=== PATIENT | female | born 1995 | race Caucasian/White ===

== ENCOUNTER → 2018-08-12 | Outpatient (CLI) | payer OTHER | LOC: M RAD 14:10 | DX: Z36.89 Encounter for other specified antenatal screening (principal); Z3A.20 20 weeks gestation of pregnancy | CPT/HCPCS: 76811 ==

== ENCOUNTER 2019-02-10 13:28 | Inpatient (IN) | payer OTHER ==
[~2019-02-10] VITALS: Ht 152.4 cm; Wt 57.4 kg
[2019-02-10 14:26] LABS: HEMATOCRIT 40.7 % (36.0-47.0); HEMOGLOBIN 13.1 g/dl (12.0-15.5); MEAN CORPUSCULAR HEMOGLOBIN 27.7 pg (27.0-33.0); MEAN CORPUSCULAR HGB CONC 32.2 g/dl (32.0-36.5); PLATELET COUNT, AUTOMATED 389 10^3/uL (150-450); RED BLOOD COUNT 4.73 10^6/uL (4.00-5.40); WHITE BLOOD COUNT 9.5 10^3/uL (4.0-10.0)
[2019-02-10] MEDS ORDERED: ACETAMINOPHEN 325 MG TAB PO ONE (14:45)
--- NOTE | 2019-02-10 14:49 | REP ---
Right hand four views History: Injury There is no acute fracture or dislocation. The joint spaces are normal in appearance. Impression: There is no acute fracture or dislocation. Electronically Signed by Antonino Albright MD 02/10/2019 02:41 P
[2019-02-10 14:50] LABS: AMPHETAMINES LEVEL URINE NEGATIVE (NEGATIVE); BARBITURATES URINE NEGATIVE (NEGATIVE); BENZODIAZEPINES URINE NEGATIVE (NEGATIVE); CANNABINOIDS URINE NEGATIVE (NEGATIVE); COCAINE METABOLITE URINE NEGATIVE (NEGATIVE); METHADONE URINE NEGATIVE (NEGATIVE); OPIATES URINE NEGATIVE (NEGATIVE); PHENCYCLIDINE URINE NEGATIVE (NEGATIVE)
[2019-02-10] MEDS ORDERED: PATA2.5S OU (14:50)
[2019-02-10 14:52] LABS: HCG, SERUM QUALITATIVE NEGATIVE (NEGATIVE)
[2019-02-10 15:01] LABS: ACETAMINOPHEN LEVEL < 2.0 UG/ML (10.0-30.0); ALBUMIN 3.8 GM/DL (3.2-5.2); ALT/SGPT 24 U/L (12-78); BILIRUBIN,DIRECT 0.2 MG/DL (0.0-0.2); BILIRUBIN,TOTAL 0.6 MG/DL (0.2-1.0); BLOOD UREA NITROGEN 14 MG/DL (7-18); CALCIUM LEVEL 9.5 MG/DL (8.5-10.1); CARBON DIOXIDE LEVEL 28 MEQ/L (21-32); CHLORIDE LEVEL 103 MEQ/L (98-107); CREATININE FOR GFR 1.01 MG/DL (0.55-1.30); ETHYL ALCOHOL (ETHANOL) < 0.003 % (0.000-0.010); GLOMERULAR FILTRATION RATE > 60.0 (>60); GLUCOSE, FASTING 87 MG/DL (70-100); POTASSIUM SERUM 4.5 MEQ/L (3.5-5.1); SALICYLATE LEVEL < 1.7 MG/DL (5.0-30.0); SODIUM LEVEL 138 MEQ/L (136-145); THYROID STIMULATING HORMONE 0.718 uIU/ML (0.358-3.740); TOTAL PROTEIN 8.5 GM/DL (6.4-8.2)
[2019-02-10] MEDS ORDERED: traZODone 50 MG TAB PO PRN (16:45)
[2019-02-10] MEDS ORDERED: MAALOX 30 ML SUSP *UDC PO PRN (16:45)
[2019-02-10] MEDS ORDERED: hydrOXYzine 25 MG TAB PO SCH (16:45)
[2019-02-10] MEDS ORDERED: ACETAMINOPHEN TAB 650MG DOSE (2X325MG) PO PRN (16:45)
[2019-02-10] MEDS ORDERED: MOM 30ML SUSPENSION UDC PO PRN (16:45)
[2019-02-10 19:15] VITALS: BP 138/83
[2019-02-11 06:36] VITALS: BP 118/57
--- NOTE | 2019-02-11 09:46 | HPEPDOC ---
General Date of Admission Feb 10, 2019 at 16:45 Date of Service: Feb 11, 2019 Attending Physician: LILLIE FRANKLIN MD Chief Complaint The patient is a 23-year-old female admitted with a reason for visit of Unspecified Depressive Do. History of Present Illness 23-year-old female, who delivered a still born son in September presenting to the hospital stating she wants to be with her son. Patient also supposedly struck her head over 12 times on a concrete wall. She was brought to the hospital for further evaluation and management. On assessment she denies any past medical problem. denies chilld, chest pain, SOB, weakness, nausea, abdominal pain Home Medications Scheduled Olopatadine HCl (Patanol) 0.1% 5ML Drops, 1 DROP OU BID, (Reported) Allergies Coded Allergies: No Known Drug Allergies (Unverified Allergy, Unknown, 02/10/19) Past Medical History Medical History Preeclampsia Surgical History denies Family History Significant Family History: Hypertension Social History * Smoker: Denies Alcohol: Denies Drugs: denies A-FIB/CHADSVASC A-FIB History Current/History of A-Fib/PAF?: No Current PO Anticoag Therapy: No Review of Systems Other systems A 10 point pertinent review of systems was completed, negative except as stated in the history of presenting illness. Physical Examination Other physical findings GENERAL: NAD SKIN : Warm, dry intact HEENT: Atraumatic, normocephalic, PERRL, moist mucous membrane CARDIOVASCULAR: Regular rate and rhythm, S1S2, no JVD, no edema, distal pulses + and palpable RESP: CTAB, no accessory muscle use noted ABDOMEN: BS+ non distended non tender MS: no joint deformities NEURO: Alert and oriented x 3, CN2-12 grossly intact PSYCH: depressed Vital Signs Vital Signs Date Time Temp Pulse Resp B/P (MAP) Pulse Ox O2 Delivery O2 Flow Rate FiO2 02/11/19 08:05 Room Air 02/11/19 06:36 98.4 88 14 118/57 (77) 02/10/19 18:58 100 Laboratory Data Labs 24H Laboratory Tests 2 02/10/19 14:10: Nucleated Red Blood Cells % (auto) 0.0, Anion Gap 7L, Glomerular Filtration Rate > 60.0, Calcium Level 9.5, Aspartate Amino Transf (AST/SGOT) 21, Alanine Aminotransferase (ALT/SGPT) 24, Alkaline Phosphatase 80, Total Bilirubin 0.6, Direct Bilirubin 0.2, Total Protein 8.5H, Albumin 3.8, Albumin/Globulin Ratio 0.81L, Thyroid Stimulating Hormone (TSH) 0.718, Human Chorionic Gonadotropin, Qual NEGATIVE, Salicylates Level < 1.7L, Urine Amphetamines Screen NEGATIVE, Urine Benzodiazepines Screen NEGATIVE, Urine Opiates Screen NEGATIVE, Urine Methadone Screen NEGATIVE, Acetaminophen Level < 2.0L, Urine Barbiturates Screen NEGATIVE, Urine Phencyclidine Screen NEGATIVE, Urine Cocaine Metabolite Screen NEGATIVE, Urine Cannabinoids Screen NEGATIVE, Ethyl Alcohol Level < 0.003 CBC/BMP Laboratory Tests 02/10/19 14:10 Red Blood Count 4.73, Mean Corpuscular Volume 86.0, Mean Corpuscular Hemoglobin 27.7, Mean Corpuscular Hemoglobin Concent 32.2, Red Cell Distribution Width 12.6 Assessment/Plan Depression -management by primary team Suicidal Ideation -management by primary team DVT prophylaxis -not indicated, patient is frequently ambulatory At this time patient has no acute medical problems or underlying comorbidities requiring active follow-up. Acute problems are managed by primary team. Medical team will sign off, please re-consult as needed. Plan / VTE VTE Prophylaxis Ordered?: No VTE Exclusion Mechanical Proph: Low Risk for VTE NII [facility] Feb 11, 2019 09:46
--- NOTE | 2019-02-11 12:55 | MHHPEPDOC ---
General Date Of Admission: Feb 10, 2019 Legal Status: 9.39 Chief Complaint Mother called the MP's because she thought her daughter was suicidal History of Present Illness HISTORY OF THE PRESENT ILLNESS: Patient is a 23 -year-old , female, who, according to ED report: "Reason for Referral * PT's mother called the MP's to report that PT is suicidal Chief Complaint PT is AD 2 years without deployments. She is scheduled for ETS 2022 but is currently in the Chapter process to leave now. PT experienced a still born in September of this year and her son Blake is now buried in [place] where she is from. PT was on leave for 12 weeks and while home she established a therapist that she has access to 2x weekly. The therapist wrote multiple letters to support PT not returning to [place] at all as she is emotionally not ready but it was to no avail. PT returned to [facility] beginning of December and she was made to go to [facility]. "That place is a joke. A month just to schedule with a therapist when I can see mine at home 2x a week". PT denies she needed mental health involvement prior to the miscarriage and that recently she developed SI. She states that she has never been this sad before and that she feels hopeless. She is vague in regards to being suicidal and when asked to elaborate she will discuss wanting to see her son as if she means returning home to be near his grave. She then was asked if she has ever attempted suicide and she stated this morning but then states "I don't want to talk about it". PT would not elabortae furthur until she was informed that she is being admitted and that her possible attempt this morning is just one of several factors that are concerning. PT then states she did not make a suicide attempt this morning but rather she only thought about it and that she called her mother instead. PT denies having social supports here and she doesn't have a relationship with the baby's because she does not want his negative energy around her. PT is not pleased aboput being admitted but seem accepting" Psychiatric Review of Systems Depression (2 or more weeks): depressed mood (sometimes she feels like crying but she doesn't do it because she feels it has made it "get through"), insomnia/hypersomnia (wakes up in the middle of the night), feelings of excess/guilt (she feels a little bit guilty because she feels her body didn't respond weel, was not able to keep her baby), appetite changes (she barely eats since she had her stillborn), suicidal thoughts, other (hopeles and helpless) Mariah (4 or more days of): denies Psychosis: denies PTSD: denies Anxiety: denies Anxiety/ 6 months or more of: irritability, sleep disturbance Past Psychiatric History Previous Psychiatric Diagnosis: Denies Previous Psychiatric Admissions: Denies Suicide Attempts: Denies Psychiatric Follow-up: She says she went to [facility] about one month ago. she thinks is not worth going "because they just stare at me and don't say anything" Psychiatric medications: Denies and refuses to take them, she says she doesn't take medications, she will never take them, she has discussed this with her mother and "other people" and "I won't take them". Past Medical History Head Injury: No Seizures: No Hospitalizations: Yes Surgeries: No Family Medical/Psychiatric HX Medical Problems Denies Psychiatric Disorders: No Addiction: No Suicide Attemps/Completions: No Addiction History denies Social History Childhood: she says she grew up with both parents in [place], where she was born. she has a brother with whom she gets along well, she has a sister but "she does her thing you know, we talk but not that frequently". she says she loves her nieces "to ". 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 Mental Status Examination General Appearance: well groomed, appears stated age, hospital scubs/clothing Build: average Demeanor: mistrustful, guarded Eye Contact: avoidant, poor Behavior: uncooperative, resistant, loss of interests Speech: clear, reg/rate,rhythm,volume, non-spontaneous Mood: depressed, irritable Affect: constricted, inappropriate, congruent Thought Process: logical/linear, depressed Thought Content (Delusions): denies SI, HI, AVH Thought Content (Other): guarded, guilty, ideas of reference Thought Content (Aggressive): none reported Perception (Hallucinations): none reported Perception (Other): depersonalization (The patient reports feeling numb, almost all the time) Cognition (Impairment of): none reported Cognition(Intelligence Est.): average Oriented: Awake, Alert, Oriented times three Insight: poor Judgment: Poor Psychosis: Denies Diagnoses 1. Unspecified major depressive disorder 2. R/O Personality disorder Assessment The patient is uncooperative, she says she doesn't want to take medications, she has never believed in them, she doesn't believe in them. she already had discussions about this subject with her family and she already has told them she won't do it. she answers questions on a superficial level, she gives short, brief responses, she doesn't establish eye contact, in fact she looks at the ceiling almost all the time. She is not willing to stay hospitalized, she is not processing her loss, she still carries with her a baby blanket, a blanket her baby never got to use. She says that her son was going to be "my only child he was going to be my world" and saying that she excludes all the people that she says she has had a good relationship with, her family. she says she keeps in touch once in awhile with the baby's father, adriana is not at [facility] [address], he is "somewhere else". I encouraged the patient to attend groups but she doesn't want to, she wants to be discharged. I told her that I think she needs therapy and medications and if she is not willing to do it, she will be transferred to [facility] facility ([facility]), she said she was OK with it, not looking at me. looking at the wall. There were moments during the interview when she smiled in the middle of having a serious conversation. Initial Treatment Plan 1. Patient was admitted on a [9.39] status. 2. Complete history was obtained. 3. With patients permission, family will be contacted and database will be expanded. 4. Patients medication regimen will be reviewed and changed accordingly. 5. Patient will be provided with protected environment. 6. Patient will be treated with individual, group, and milieu therapies. 7. Patient will receive supportive psych-education. 8. Discharge planning will commence immediately. 9. Outpatient follow-up treatment will be strongly recommended. 10. The initial treatment plan will focus initially on: * Depression. * Bereavement (complicated) * Risk for suicide. ESTIMATED LENGTH OF STAY: 5-7DAYS. TIME SPENT COUNSELING AND COORDINATING INITIAL CARE: 60 minutes. Vital Signs Vital Signs Date Time Temp Pulse Resp B/P (MAP) Pulse Ox O2 Delivery O2 Flow Rate FiO2 02/11/19 08:05 Room Air 02/11/19 06:36 98.4 88 14 118/57 (77) 02/10/19 18:58 100 Laboratory Data 24H Labs Laboratory Tests 2 02/10/19 14:10: Nucleated Red Blood Cells % (auto) 0.0, Anion Gap 7L, Glomerular Filtration Rate > 60.0, Calcium Level 9.5, Aspartate Amino Transf (AST/SGOT) 21, Alanine Amino transferase (ALT/SGPT) 24, Alkaline Phosphatase 80, Total Bilirubin 0.6, Direct Bilirubin 0.2, Total Protein 8.5H, Albumin 3.8, Albumin/Globulin Ratio 0.81L, Thyroid Stimulating Hormone (TSH) 0.718, Human Chorionic Gonadotropin, Qual NEGATIVE, Salicylates Level < 1.7L, Urine Amphetamines Screen NEGATIVE, Urine Benzodiazepines Screen NEGATIVE, Urine Opiates Screen NEGATIVE, Urine Methadone Screen NEGATIVE, Acetaminophen Level < 2.0L, Urine Barbiturates Screen NEGATIVE, Urine Phencyclidine Screen NEGATIVE, Urine Cocaine Metabolite Screen NEGATIVE, Urine Cannabinoids Screen NEGATIVE, Ethyl Alcohol Level < 0.003 CBC/BMP Laboratory Tests 02/10/19 14:10 Red Blood Count 4.73, Mean Corpuscular Volume 86.0, Mean Corpuscular Hemoglobin 27.7, Mean Corpuscular Hemoglobin Concent 32.2, Red Cell Distribution Width 12.6 Medications Scheduled Olopatadine HCl (Patanol) 0.1% 5ML Drops, 1 DROP OU BID, (Reported) Allergies Coded Allergies: No Known Drug Allergies (Unverified Allergy, Unknown, 02/10/19) MICHAEL MCKEON MD Feb 11, 2019 12:55
[2019-02-11 18:36] VITALS: BP 112/57
[2019-02-12 06:45] VITALS: BP 114/53
[2019-02-12 18:00] VITALS: BP 115/57
--- NOTE | 2019-02-12 19:32 | MHIPNPDOC ---
[facility] Progress Note Progress Note DATE OF SERVICE: 02/12/19 HISTORY: Chief Complaint Mother called the MP's because she thought her daughter was suicidal History of Present Illness HISTORY OF THE PRESENT ILLNESS: Patient is a 23 -year-old , female, who, according to ED report: "Reason for Referral * PT's mother called the MP's to report that PT is suicidal Chief Complaint PT is AD 2 years without deployments. She is scheduled for ETS 2022 but is currently in the Chapter process to leave now. PT experienced a still born in September of this year and her son Blake is now buried in [place] where she is from. PT was on leave for 12 weeks and while home she established a therapist that she has access to 2x weekly. The therapist wrote multiple letters to support PT not returning to [place] at all as she is emotionally not ready but it was to no avail. PT returned to [facility] beginning of December and she was made to go to [facility]. "That place is a joke. A month just to schedule with a therapist when I can see mine at home 2x a week". PT denies she needed mental health involvement prior to the miscarriage and that recently she developed SI. She states that she has never been this sad before and that she feels hopeless. She is vague in regards to being suicidal and when asked to elaborate she will discuss wanting to see her son as if she means returning home to be near his grave. She then was asked if she has ever attempted suicide and she stated this morning but then states "I don't want to talk about it". PT would not elabortae furthur until she was informed that she is being admitted and that her possible attempt this morning is just one of several factors that are concerning. PT then states she did not make a suicide attempt this morning but rather she only thought about it and that she called her mother instead. PT denies having social supports here and she doesn't have a relationship with the baby's because she does not want his negative energy around her. PT is not pleased aboput being admitted but seem accepting" VITAL SIGNS: See below. NEW TEST RESULTS: See below CURRENT MEDICATIONS: See below. MENTAL STATUS EXAMINATION: Patient is a 23-year old female, who is alert, cooperative, dressed in hospital clothes. Speech: Is clear, spontaneous, monty rate, rhythm, tone and volume Language skills are good. Thought processes including: goal orientated, linear, coherent. Thought content: goal orientated, she denies SI/HI. Description of abnormal or psychotic thoughts: she denies AV hallucinations, denies thought delusions. Judgment: improving. Insight: improving. Orientation: x 3. Recent and remote memory: intact. Attention span and concentration: good. Language: normal. Fund of knowledge: average. Mood: euthymic. Affect: congruent with mood. DIAGNOSES: 1. Unspecified major depressive disorder 2. R/O Personality disorder ASSESSMENT: The patient is going to be discharged on Sunday, she is going to be discharged to her mother, to go back home. she was from [employer] and they were pending only from some paperwork and a signature. she was visibly happy, says she didn't expect this from happening, she is happy to know she will be with her family and with the therapist she feels comfortable MANAGEMENT PLAN: Encourage her to go to groups TIME SPENT: 20 minutes. Vital Signs Vital Signs Date Time Temp Pulse Resp B/P (MAP) Pulse Ox O2 Delivery O2 Flow Rate FiO2 02/12/19 18:00 98.1 78 16 115/57 (76) 02/11/19 08:05 Room Air 02/10/19 18:58 100 Current Medications Current Medications Acetaminophen (Tylenol Tab) 650 mg Q6HP PRN PO HEADACHE or DISCOMFORT; Start 02/10/19 at 16:45 Al Hydrox/Mg Hydrox/Simethicone (Mylanta) 30 ml Q4HP PRN PO HEARTBURN/INDIGESTION; Start 02/10/19 at 16:45 Home Med (Med Rec Complete!) ASDIRECTED XX ; Start 02/10/19 at 15:00; Stop 02/10/19 at 15:00; Status DC Hydroxyzine HCl (Atarax) 25 mg Q4HP PO ; Start 02/10/19 at 16:45 Magnesium Hydroxide (Milk Of Magnesia) 30 ml DAILYPRN PRN PO CONSTIPATION; Start 02/10/19 at 16:45 Trazodone HCl (Desyrel) 50 mg QHSP PRN PO INSOMNIA; Start 02/10/19 at 16:45 Allergies Coded Allergies: No Known Drug Allergies (Unverified Allergy, Unknown, 02/10/19) MICHAEL MCKEON MD Feb 12, 2019 19:31
[2019-02-13 06:40] VITALS: BP 112/53
[2019-02-13] MEDS ORDERED: CETIRIZINE (ZyrTEC) 10 MG TAB PO ONE (15:15)
[2019-02-13 18:00] VITALS: BP 109/66
--- NOTE | 2019-02-13 20:30 | MHIPNPDOC ---
[facility] Progress Note Progress Note DATE OF SERVICE: 02/13/19 HISTORY: Chief Complaint Mother called the MP's because she thought her daughter was suicidal HISTORY OF THE PRESENT ILLNESS: Patient is a 23 -year-old , female, who, according to ED report: " PT is AD 2 years without deployments. She is scheduled for ETS 2022 but is currently in the Chapter process to leave now. PT experienced a still born in September of this year and her son Blake is now buried in [place] where she is from. PT was on leave for 12 weeks and while home she established a therapist that she has access to 2x weekly. The therapist wrote multiple letters to support PT not returning to [place] at all as she is emotionally not ready but it was to no avail. PT returned to [facility] beginning of December and she was made to go to [facility]. "That place is a joke. A month just to schedule with a therapist when I can see mine at home 2x a week". PT denies she needed mental health involvement prior to the miscarriage and that recently she developed SI. She states that she has never been this sad before and that she feels hopeless. She is vague in regards to being suicidal and when asked to el aborate she will discuss wanting to see her son as if she means returning home to be near his grave. She then was asked if she has ever attempted suicide and she stated this morning but then states "I don't want to talk about it". PT would not elabortae furthur until she was informed that she is being admitted and that her possible attempt this morning is just one of several factors that are concerning. PT then states she did not make a suicide attempt this morning but rather she only thought about it and that she called her mother instead. PT denies having social supports here and she doesn't have a relationship with the baby's because she does not want his negative energy around her. PT is not pleased aboput being admitted but seem accepting" VITAL SIGNS: See below. NEW TEST RESULTS: See below CURRENT MEDICATIONS: See below. MENTAL STATUS EXAMINATION: Patient is a 23-year old female, who is alert, cooperative, dressed in hospital clothes. Speech: Is clear, spontaneous, monty rate, rhythm, tone and volume Language skills are good. Thought processes including: goal orientated, linear, coherent. Thought content: goal orientated, she denies SI/HI. Description of abnormal or psychotic thoughts: she denies AV hallucinations, denies thought delusions. Judgment: improving. Insight: improving. Orientation: x 3. Recent and remote memory: intact. Attention span and concentration: good. Language: normal. Fund of knowledge: average. Mood: euthymic. Affect: congruent with mood. DIAGNOSES: 1. Unspecified major depressive disorder 2. R/O Personality disorder ASSESSMENT: Relief Manager confirmed patient will be leaving on Sunday because her mother will come from [place] and will pick her up to take her back with her. Patient is happy about going back home. Her mood and affect are bright, she has improved. She was given Zyrtec 10 mgs because she presented with allergic rhinitis. MANAGEMENT PLAN: Encourage her to go to groups TIME SPENT: 20 minutes. Vital Signs Vital Signs Date Time Temp Pulse Resp B/P (MAP) Pulse Ox O2 Delivery O2 Flow Rate FiO2 02/13/19 18:00 97.7 86 16 109/66 (80) 02/11/19 08:05 Room Air 02/10/19 18:58 100 Current Medications Current Medications Acetaminophen (Tylenol Tab) 650 mg Q6HP PRN PO HEADACHE or DISCOMFORT; Start 02/10/19 at 16:45 Al Hydrox/Mg Hydrox/Simethicone (Mylanta) 30 ml Q4HP PRN PO HEARTBURN/INDIGESTION; Start 02/10/19 at 16:45 Cetirizine HCl (ZyrTEC) 10 mg DAILY PO ; Start 02/14/19 at 09:00 Home Med (Med Rec Complete!) ASDIRECTED XX ; Start 02/10/19 at 15:00; Stop 02/10/19 at 15:00; Status DC Hydroxyzine HCl (Atarax) 25 mg Q4HP PO ; Start 02/10/19 at 16:45 Magnesium Hydroxide (Milk Of Magnesia) 30 ml DAILYPRN PRN PO CONSTIPATION; Start 02/10/19 at 16:45 Trazodone HCl (Desyrel) 50 mg QHSP PRN PO INSOMNIA; Start 02/10/19 at 16:45 Allergies Coded Allergies: No Known Drug Allergies (Unverified Allergy, Unknown, 02/10/19) MICHAEL MCKEON MD Feb 13, 2019 20:30
[2019-02-14 06:27] VITALS: BP 103/53
[2019-02-14] MEDS: CETIRIZINE (ZyrTEC) 10 MG TAB PO SCH ×2 (09:58→10:01)
[2019-02-14 18:01] VITALS: BP 127/59
--- NOTE | 2019-02-14 21:13 | MHIPNPDOC ---
[facility] Progress Note Progress Note DATE OF SERVICE: 02/14/19 HISTORY: Chief Complaint Mother called the MP's because she thought her daughter was suicidal HISTORY OF THE PRESENT ILLNESS: Patient is a 23 -year-old , female, who, according to ED report: " PT is AD 2 years without deployments. She is scheduled for ETS 2022 but is currently in the Chapter process to leave now. PT experienced a still born in September of this year and her son Balke is now buried in [place] where she is from. PT was on leave for 12 weeks and while home she established a therapist that she has access to 2x weekly. The therapist wrote multiple letters to support PT not returning to [place] at all as she is emotionally not ready but it was to no avail. PT returned to [facility] beginning of December and she was made to go to [facility]. "That place is a joke. A month just to schedule with a therapist when I can see mine at home 2x a week". PT denies she needed mental health involvement prior to the miscarriage and that recently she developed SI. She states that she has never been this sad before and that she feels hopeless. She is vague in regards to being suicidal and when asked to el aborate she will discuss wanting to see her son as if she means returning home to be near his grave. She then was asked if she has ever attempted suicide and she stated this morning but then states "I don't want to talk about it". PT would not elabortae furthur until she was informed that she is being admitted and that her possible attempt this morning is just one of several factors that are concerning. PT then states she did not make a suicide attempt this morning but rather she only thought about it and that she called her mother instead. PT denies having social supports here and she doesn't have a relationship with the baby's because she does not want his negative energy around her. PT is not pleased aboput being admitted but seem accepting" VITAL SIGNS: See below. NEW TEST RESULTS: See below CURRENT MEDICATIONS: See below. MENTAL STATUS EXAMINATION: Patient is a 23-year old female, who is alert, cooperative, dressed in hospital clothes. Speech: Is clear, spontaneous, normal rate, rhythm, tone and volume Language skills are good. Thought processes including: goal orientated, linear, coherent. Thought content: goal orientated, she denies SI/HI. Description of abnormal or psychotic thoughts: she denies AV hallucinations, denies thought delusions. Judgment: improving. Insight: improving. Orientation: x 3. Recent and remote memory: intact. Attention span and concentration: good. Language: normal. Fund of knowledge: average. Mood: less depressed, brighter. Affect: congruent with mood. DIAGNOSES: 1. Unspecified major depressive disorder in partial remission 2. R/O Personality disorder ASSESSMENT: Mental Status Exam has not changed much since yesterday. She continues to feel happy because she is going back home on Sunday. She reported improvement on her recent allergies. Will continue to monitor MANAGEMENT PLAN: Encourage her to go to groups TIME SPENT: 20 minutes. Vital Signs Vital Signs Date Time Temp Pulse Resp B/P (MAP) Pulse Ox O2 Delivery O2 Flow Rate FiO2 02/14/19 18:01 98.5 81 16 127/59 (81) 02/11/19 08:05 Room Air 02/10/19 18:58 100 Current Medications Current Medications Acetaminophen (Tylenol Tab) 650 mg Q6HP PRN PO HEADACHE or DISCOMFORT; Start 02/10/19 at 16:45 Al Hydrox/Mg Hydrox/Simethicone (Mylanta) 30 ml Q4HP PRN PO HEARTBURN/INDIGESTION; Start 02/10/19 at 16:45 Cetirizine HCl (ZyrTEC) 10 mg DAILY PO ; Start 02/14/19 at 09:00 Home Med (Med Rec Complete!) ASDIRECTED XX ; Start 02/10/19 at 15:00; Stop at 15:00; Status DC Hydroxyzine HCl (Atarax) 25 mg Q4HP PO ; Start 02/10/19 at 16:45 Magnesium Hydroxide (Milk Of Magnesia) 30 ml DAILYPRN PRN PO CONSTIPATION; Start 02/10/19 at 16:45 Trazodone HCl (Desyrel) 50 mg QHSP PRN PO INSOMNIA; Start 02/10/19 at 16:45 Allergies Coded Allergies: No Known Drug Allergies (Unverified Allergy, Unknown, 02/10/19) MICHAEL MCKEON MD Feb 14, 2019 21:13
[2019-02-15 06:29] VITALS: BP 106/56
[2019-02-15] MEDS: CETIRIZINE (ZyrTEC) 10 MG TAB PO SCH (09:00)
[2019-02-15 18:01] VITALS: BP 113/55
[2019-02-16 06:20] VITALS: BP 123/65
[2019-02-16] MEDS: CETIRIZINE (ZyrTEC) 10 MG TAB PO SCH (09:00)
[2019-02-16] MEDS ORDERED: CETI10TA PO (17:06)
[2019-02-16 18:02] VITALS: BP 125/63
[2019-02-17 06:31] VITALS: BP 114/58
[2019-02-17] MEDS: CETIRIZINE (ZyrTEC) 10 MG TAB PO SCH (08:53)
--- NOTE | 2019-03-02 17:43 | MHDSPDOC ---
[facility] Discharge Summary Discharge Summary DATE OF ADMISSION: Feb 10, 2019 at 16:45 DATE OF DISCHARGE: Feb 17, 2019 at 12:10 DISCHARGE DIAGNOSES: 1. Unspecified depressive disorder 2. R/O Adjustment disorder with anxious/depressed mood 3. R/O Personality disorder REASON FOR ADMISSION: Patient is a 23 -year-old , female, who, according to ED report: "PT's mother called the MP's to report that PT is suicidal. PT is AD 2 years without deployments. She is scheduled for ETS 2022 but is currently in the Chapter process to leave now. PT experienced a still born in September of this year and her son Blake is now buried in [place] where she is from. PT was on leave for 12 weeks and while home she established a therapist that she has access to 2x weekly. The therapist wrote multiple letters to support PT not returning to [place] at all as she is emotionally not ready but it was to no avail. PT returned to [facility] beginning of December and she was made to go to [facility]. "That place is a joke. A month just to schedule with a therapist when I can see mine at home 2x a week". PT denies she needed mental health involvement prior to the miscarriage and that recently she developed SI. She states that she has never been this sad before and that she feels hopeless. She is vague in regards to being suicidal and when asked to elaborate she will discuss wanting to see her son as if she means returning home to be near his grave. She then was asked if she has ever attempted suicide and she stated this morning but then states "I don't want to talk about it". PT would not elabortae sabinaur until she was informed that she is being admitted and that her possible attempt this morning is just one of several factors that are concerning. PT then states she did not make a suicide attempt this morning but rather she only thought about it and that she called her mother instead. PT denies having social supports here and she doesn't have a relationship with the baby's because she does not want his negative energy around her. PT is not pleased aboput being admitted but seem accepting" CONSULTANTS INVOLVED: None TREATMENT AND PROGRESS ON THE UNIT : The patient was observed to be depressed, she wanted to keep a blanket with her, the blanket she would have liked to be her child (stillborn). The patient refused to take medications since her admission, said she didn't believe in taking medications (in general, not only antidepressants). She remained isolative to her room, had minimal interactions with staff, did not attend groups regularly. She reported she had gone for therapy when she was in [place], recently and she wants to keep going for therapy but she doesn't like to receive therapy in [place] because the therapists only listen to her, they don't tell her what to do and I explained that therapists are not supposed to tell her what to do, only help her see what her problems might be and help her change the ways she thinks about life in order to be able to cope. She said she will go to therapy once she goes back to [place]. [employer] stated that she was in the process of and they were pending some paperwork, they would be more than happy to expedite it so that she would be able to go back to [place] with her family, which is what she wants, so that she will keep going to therapy over there. Over the course of her hospitalization she denied many times being suicidal, she said she had suicidal thoughts the days she was admitted and told her mother about it. She was visibly happy when she was told she would be going home with her family once discharged from our Unit. That plan was to discharge her to her [facility] to go for a safety check to where she will be picked up by her mother who will drive back to [place] with the patient. The patient became more talkative, her mood and affect improved after she heard that she was going back home. She adamantly denied suicidal and homicidal ideation, denied thought delusions, denied auditory/visual hallucinations. She was able to contract for safety. HOSPITAL COURSE: As above. DISCHARGE ASSESSMENT: The patient was not homicidal, not homicidal and not psychotic at the time of her discharge. She was future orientated, wanted to go back home to [place] with her family and wanted to keep going to therapy back at home MENTAL STATUS EXAMINATION ON DISCHARGE: Patient is a 23-year old female, who is alert, cooperative, dressed in hospital clothes. Speech: Is clear, spontaneous, normal rate, rhythm, tone and volume Language skills are good. Thought processes including: goal orientated, linear, coherent. Thought content: goal orientated, she denies SI/HI. Description of abnormal or psychotic thoughts: she denies AV hallucinations, denies thought delusions. Judgment: improving. Insight: improving. Orientation: x 3. Recent and remote memory: intact. Attention span and concentration: good. Language: normal. Fund of knowledge: average. Mood: less depressed, brighter. Affect: congruent with mood. MEDICATIONS ON DISCHARGE: Scheduled Cetirizine HCl (Cetirizine HCl) 10 Mg Tablet, 10 MG PO DAILY for seasonal allergies, #7 Olopatadine HCl (Patanol) 0.1% 5ML Drops, 1 DROP OU BID, (Reported) Allergies Coded Allergies: No Known Drug Allergies (Unverified Allergy, Unknown, 02/10/19) PLAN/FOLLOWUP ARRANGEMENTS: As er Foam Caster: "Mental Health Appt 1 - Additional information Patient will follow up with [facility] following discharge.Patient will be leaving to go to [place] on Sunday02/18/19. The amount of time spent in the coordination of care for this patient was approximately 30 minutes. Medications Scheduled Cetirizine HCl (Cetirizine HCl) 10 Mg Tablet, 10 MG PO DAILY for seasonal allergies, #7 Olopatadine HCl (Patanol) 0.1% 5ML Drops, 1 DROP OU BID, (Reported) Allergies Coded Allergies: No Known Drug Allergies (Unverified Allergy, Unknown, 02/10/19) MICHAEL MCKEON MD Mar 02, 2019 17:01
== END 2019-02-17 12:10 | disposition home or self-care (01) | DRG 881 ==
LOC: M ED 13:28 → M ED INP 16:45 → M PSY 19:05
PROVIDERS: ADMIT Psychiatry & Neurology Psychiatry; ATTEND Psychiatry & Neurology Psychiatry
DX: F32.9 Major depressive disorder, single episode, unspecified (principal); F60.9 Personality disorder, unspecified; F43.23 Adjustment disorder with mixed anxiety and depressed mood; F41.9 Anxiety disorder, unspecified